=== PATIENT | male | born 1990 | race Caucasian/White ===

== ENCOUNTER 2018-02-26 18:29 | Emergency (ER) | payer MEDICAID, OTHER ==
[2018-02-26] MEDS: LIDOCAINE 1% (MDV) 10 ML INJ INFIL (20:03)
== END 2018-02-26 20:45 | disposition home or self-care (01) ==
LOC: FTE 18:29
DX: S01.112A Laceration without foreign body of left eyelid and periocular area, initial encounter (principal); W22.8XXA Striking against or struck by other objects, initial encounter; Y92.89 Other specified places as the place of occurrence of the external cause
CPT/HCPCS: 12011; 99283-25